=== PATIENT | male | born 1965 | race Caucasian/White ===

== ENCOUNTER → 2016-11-20 | Outpatient (CLI) | payer SELFPAY ==
[2016-11-20 16:08] LABS: CHLORIDE,CL 105 mmol/L (98-110); SODIUM,NA 138 mmol/L (136-146)
== END ==
LOC: MW.CHIM 15:35
PROVIDERS: ATTEND Internal Medicine
DX: I16.0 Hypertensive urgency (principal)
CPT/HCPCS: 36415; 80053; 80061; 85025

== ENCOUNTER → 2016-12-06 | Outpatient (CLI) | payer SELFPAY | LOC: MW.CHIM 08:29 | PROVIDERS: ATTEND Internal Medicine | DX: E11.9 Type 2 diabetes mellitus without complications (principal) | CPT/HCPCS: 36415; 84443 ==